=== PATIENT | female | born 1985 | race Two or more races ===

== ENCOUNTER 2019-11-05 05:31 | Emergency (ER) | payer MEDICAID, SELFPAY ==
[~2019-11-05] VITALS: Ht 165.1 cm; Wt 151.5 kg
--- NOTE | 2019-11-05 05:54 | NUR ---
PATIENT REPORTS HER PAIN MOVES FROM HER RLQ TO RUQ, SHE REPORTS RIGHT FLANK PAIN, DENIES ANY DIARRHEA, DENIES ANY TROUBLE OR PAIN URINATING. DENIES ANY BLOOD IN URINE. SHE DENIES ANY N/V. RN GAVE PATIENT A GLASS OF WATER TO ATTEMPT TO OBTAIN A URINE MARIO
[2019-11-05 06:26] LABS: BASOPHILS # (AUTO) 0.01 x10^3/uL (0-0.1); BASOPHILS % (AUTO) 0 % (0-1); EOSINOPHILS # (AUTO) 0.19 x10^3/uL (0-0.4); EOSINOPHILS % (AUTO) 3 % (1-7); LYMPHOCYTES % (AUTO) 17 % (22-44); MD NO; MEAN CORPUSCULAR HEMOGLOBIN 28.1 pg (27.0-34.8); MEAN CORPUSCULAR HGB CONC 32.5 g/dL (32.4-35.8); MEAN CORPUSCULAR VOLUME 86.4 fL (80-100); MEAN PLATELET VOLUME 8.4 fL (7.4-10.4); MONOCYTES # (AUTO) 0.31 x10^3/uL (0.2-0.8); MONOCYTES % (AUTO) 4 % (2-9); NEUTROPHILS # (AUTO) 5.33 x10^3/uL (1.8-6.8); NEUTROPHILS % (AUTO) 76 % (42-75); PLATELET COUNT 202 x10^3/uL (130-400); RED BLOOD COUNT 5.68 x10^6/uL (3.82-5.3); RED CELL DISTRIBUTION WIDTH 15.1 % (9.6-15.2)
[2019-11-05 06:38] LABS: ALANINE AMINOTRANSFERASE 36 U/L (12-78); ALBUMIN 3.1 g/dL (3.4-5.0); ANION GAP 5 mmol/L (5-15); CALCIUM 8.7 mg/dL (8.5-10.1); CHLORIDE 106 mmol/L (98-107)
[2019-11-05 06:41] LABS: ALKALINE PHOSPHATASE 115 U/L (45-117); BILIRUBIN,TOTAL 0.8 mg/dL (0.2-1.0); CREATININE 0.79 mg/dL (0.55-1.02); TOTAL PROTEIN 8.5 g/dL (6.4-8.2)
--- NOTE | 2019-11-05 06:59 | NUR ---
PT TO CT.
[2019-11-05] MEDS ORDERED: OMNIPAQUE 350 MG/ML, 150 ML BOTTLE ONE (07:06)
[2019-11-05 07:25] LABS: MICROSCOPIC INDICATED
--- NOTE | 2019-11-05 07:58 | NUR ---
URINE STILL PENDING. CONTACTED URINE DEPARTMENT, STATED THEY WILL GET TO PT'S SAMPLE NEXT.
[2019-11-05 08:22] VITALS: BP 170/113
== END 2019-11-05 08:25 | disposition home or self-care (01) ==
LOC: ED 06:52
DX: R31.29 Other microscopic hematuria (principal); R10.2 Pelvic and perineal pain; R10.31 Right lower quadrant pain; E66.01 Morbid (severe) obesity due to excess calories; I10 Essential (primary) hypertension; Z90.710 Acquired absence of both cervix and uterus; Z68.43 Body mass index [BMI] 50.0-59.9, adult
CPT/HCPCS: 36415; 74177; 80053; 81001; 83690; 85025; 99285; Q9967

== ENCOUNTER 2019-11-12 10:11 | Emergency (ER) | payer MEDICAID ==
[~2019-11-12] VITALS: Ht 165.1 cm; Wt 152.5 kg
--- NOTE | 2019-11-12 10:48 | NUR ---
OTOLARYNGOLOGY REP: PT TO ROOM FROM TRIAGE
[2019-11-12] MEDS ORDERED: LISI-167 PO (11:07)
--- NOTE | 2019-11-12 11:11 | NUR ---
PT WITH C/O COUGH FOR ABOUT TWO MONTHS, STATES SHE BEGAN TO COUGH UP BLOOD WHILE AT WORK TODAY. STILL HAS DRY COUGH DENIES FURTHER BLOOD. DENIES FEVER, SOB AT THIS TIME.
[2019-11-12 12:54] VITALS: BP 126/76
[2019-11-12 13:02] LABS: BASOPHILS # (AUTO) 0.03 x10^3/uL (0-0.1); BASOPHILS % (AUTO) 0 % (0-1); EOSINOPHILS # (AUTO) 0.19 x10^3/uL (0-0.4); EOSINOPHILS % (AUTO) 2 % (1-7); LYMPHOCYTES # (AUTO) 1.59 x10^3/uL (1-3.4); LYMPHOCYTES % (AUTO) 19 % (22-44); MD NO; MEAN CORPUSCULAR HEMOGLOBIN 27.9 pg (27.0-34.8); MEAN CORPUSCULAR HGB CONC 32.3 g/dL (32.4-35.8); MEAN CORPUSCULAR VOLUME 86.4 fL (80-100); MEAN PLATELET VOLUME 7.9 fL (7.4-10.4); MONOCYTES # (AUTO) 0.43 x10^3/uL (0.2-0.8); MONOCYTES % (AUTO) 5 % (2-9); NEUTROPHILS # (AUTO) 6.33 x10^3/uL (1.8-6.8); NEUTROPHILS % (AUTO) 74 % (42-75); PLATELET COUNT 228 x10^3/uL (130-400); RED BLOOD COUNT 5.75 x10^6/uL (3.82-5.3); RED CELL DISTRIBUTION WIDTH 15.2 % (9.6-15.2)
[2019-11-12 13:10] LABS: ALBUMIN 3.4 g/dL (3.4-5.0); ANION GAP 4 mmol/L (5-15); CALCIUM 8.9 mg/dL (8.5-10.1); CHLORIDE 108 mmol/L (98-107)
[2019-11-12 13:15] LABS: CREATININE 0.84 mg/dL (0.55-1.02)
--- NOTE | 2019-11-12 14:18 | NUR ---
TASK RN: PT MAINTAINING SPO2 >90% ON RA. NO RESPIRATORY DISTRESS NOTED. DC EDUCATION PROVIDED, PT DEMONSTRATES UNDERSTANDING. PT AMBULATED STEADILY TO DC
== END 2019-11-12 14:20 | disposition home or self-care (01) ==
LOC: ED 11:13
DX: J41.1 Mucopurulent chronic bronchitis (principal); Z20.828 Contact with and (suspected) exposure to other viral communicable diseases; R05 Cough; I10 Essential (primary) hypertension
CPT/HCPCS: 36415; 71045; 80048; 82040; 83880; 85025; 85379; 87635; 99284

== ENCOUNTER 2019-12-11 10:03 | Emergency (ER) | payer MEDICAID ==
[~2019-12-11] VITALS: Ht 165.1 cm; Wt 158.0 kg
[~2019-12-11 10:03] MED LIST: LISI-167 PO
--- NOTE | 2019-12-11 10:31 | NUR ---
PT AMBULATED BACK TO ROOM FROM TRIAGE AT THIS TIME.
--- NOTE | 2019-12-11 11:17 | NUR ---
PT AMBULATED TO THE BR W/ A STEADY GAIT. RETURNED TO ROOM, CONNECTED TO MONITORING. URINE COLLECTED AND WALKED TO LAB.
[2019-12-11 11:30] LABS: HCG UR SG 1.017 (1.003-1.030)
[2019-12-11 11:31] LABS: BASOPHILS # (AUTO) 0.03 x10^3/uL (0-0.1); BASOPHILS % (AUTO) 0 % (0-1); EOSINOPHILS % (AUTO) 3 % (1-7); LYMPHOCYTES # (AUTO) 1.38 x10^3/uL (1-3.4); LYMPHOCYTES % (AUTO) 19 % (22-44); MD NO; MEAN CORPUSCULAR HEMOGLOBIN 28.2 pg (27.0-34.8); MEAN CORPUSCULAR HGB CONC 32.3 g/dL (32.4-35.8); MEAN CORPUSCULAR VOLUME 87.3 fL (80-100); MEAN PLATELET VOLUME 8.5 fL (7.4-10.4); MONOCYTES # (AUTO) 0.34 x10^3/uL (0.2-0.8); MONOCYTES % (AUTO) 5 % (2-9); NEUTROPHILS # (AUTO) 5.29 x10^3/uL (1.8-6.8); NEUTROPHILS % (AUTO) 73 % (42-75); PLATELET COUNT 213 x10^3/uL (130-400); RED BLOOD COUNT 5.78 x10^6/uL (3.82-5.3); RED CELL DISTRIBUTION WIDTH 16.1 % (9.6-15.2)
[2019-12-11 11:37] LABS: ANION GAP 3 mmol/L (5-15); CALCIUM 8.3 mg/dL (8.5-10.1); CHLORIDE 106 mmol/L (98-107); CREATININE 0.75 mg/dL (0.55-1.02)
--- NOTE | 2019-12-11 11:47 | NUR ---
ALL TESTS RESULTED. PT IS UP FOR RECHECK AT THIS TIME.
--- NOTE | 2019-12-11 12:10 | NUR ---
PIV STARTED. PT UPDATED ON POC FOR CTA. PT RESTING ON TV TubeXNEY W/ CALL LIGHT IN REACH, SIDE RAILS UPX2. PT HYPERTENSIVE, OTHER VS WDL.
--- NOTE | 2019-12-11 12:24 | NUR ---
PT TO CT.
[2019-12-11] MEDS ORDERED: OMNIPAQUE 350 MG/ML, 75ML BOTTLE ONE (13:15)
--- NOTE | 2019-12-11 13:29 | NUR ---
LUNCH BREAK NOTE: PT DESATED TO 85% WHILE RESTING AND ON 1.5 LITERS OF OXYGEN. P PT AWOKEN AND PLACED ON 3 LITERS THAT BROUGHT HER SAT UP TO 95%. PT TO GET BREATHING TX AND STEROID AND WILL BE REEVALUATED PER DR. MESSINA.
[2019-12-11] MEDS ORDERED: DEXAMETHASONE 4 MG/ML, 1ML PO ONE (13:30)
[2019-12-11] MEDS ORDERED: DEXAMETHASONE 4 MG TABLET PO SCH (13:30)
[2019-12-11] MEDS ORDERED: DEXAMETHASONE 4 MG TABLET ONE ×2 (13:31→14:11)
[2019-12-11] MEDS ORDERED: ALBUTEROL/IPRATROPIUM 2.5MG/0.5MG, 3 ML ONE ×2 (13:47→14:11)
[2019-12-11] MEDS ORDERED: ALBUTEROL/IPRATROPIUM 2.5MG/0.5MG, 3 ML NPPB ONE (14:00)
[2019-12-11] MEDS ORDERED: DEXAMETHASONE 4 MG TABLET PO ONE (14:00)
--- NOTE | 2019-12-11 14:07 | NUR ---
REPORT FROM TARIK GAMBLE. PT CARE RESPONSIBILITIES ASSUMED.
--- NOTE | 2019-12-11 14:16 | NUR ---
PT EDUCATED ON NEBULIZER USE. VERBALIZES UNDERSTANDING. DENIES ANY FURTHER NEEDS OR CONCERNS AT THIS TIME, CALL LIGHT IN REACH.
[2019-12-11 14:29] VITALS: BP 154/103
== END 2019-12-11 14:31 | disposition home or self-care (01) ==
LOC: ED 10:56
DX: T78.40XA Allergy, unspecified, initial encounter (principal); J98.01 Acute bronchospasm; R94.31 Abnormal electrocardiogram [ECG] [EKG]; I10 Essential (primary) hypertension; E66.01 Morbid (severe) obesity due to excess calories; Z90.710 Acquired absence of both cervix and uterus; X58.XXXA Exposure to other specified factors, initial encounter; Y93.89 Activity, other specified; Y92.89 Other specified places as the place of occurrence of the external cause; Y99.8 Other external cause status
CPT/HCPCS: 36415; 71045; 71275; 80048; 81025; 84703; 85025; 93005; 94640; 99285; Q9967

== ENCOUNTER 2021-01-28 23:42 | Emergency (ER) | payer MEDICAID ==
[~2021-01-28] VITALS: Ht 165.1 cm; Wt 180.1 kg
[2021-01-29 00:20] LABS: BASOPHILS % (AUTO) 0 % (0-1); EOSINOPHILS % (AUTO) 3 % (1-7); LYMPHOCYTES % (AUTO) 24 % (22-44); MEAN CORPUSCULAR HEMOGLOBIN 30.2 pg (27.0-34.8); MEAN CORPUSCULAR HGB CONC 33.3 g/dL (32.4-35.8); MEAN PLATELET VOLUME 8.3 fL (7.4-10.4); MONOCYTES % (AUTO) 6 % (2-9); NEUTROPHILS % (AUTO) 66 % (42-75); PLATELET COUNT 171 x10^3/uL (130-400); RED BLOOD COUNT 6.19 x10^6/uL (3.82-5.3); RED CELL DISTRIBUTION WIDTH 15.3 % (9.6-15.2)
--- NOTE | 2021-01-29 00:20 | NUR ---
THIS IS A 35F THAT COMES IN FOR RLQ ABD PAIN X2WKS THAT COMES AND GOES WITH MOVEMENT. HOWEVER PT HAD LOW O2 SAT FOR TRIAGE AND WAS PLACED ON O2, PT STS SHE HAS HAD THIS HAPPEN BEFORE AND HX OF HTN, CHF. SHE IS AWAITING CPAP FOR HOME. PT INTERACTING WITH STAFF/ FAMILY APPROPRIATELY. ERP TO BEDSIDE FOR EVAL AND POC
[2021-01-29 00:23] VITALS: BP 147/120
[2021-01-29] MEDS ORDERED: ALBUTEROL/IPRATROPIUM 2.5MG/0.5MG, 3 ML ONE (00:26)
[2021-01-29] MEDS ORDERED: ALBUTEROL/IPRATROPIUM 2.5MG/0.5MG, 3 ML NPPB ONE (00:30)
--- NOTE | 2021-01-29 00:30 | NUR ---
BREATHING TX STARTED AT THIS TIME PER ERP
[2021-01-29 00:31] LABS: ANION GAP 4 mmol/L (5-15); CALCIUM 8.3 mg/dL (8.5-10.1); CHLORIDE 102 mmol/L (98-107); CREATININE 0.85 mg/dL (0.55-1.02)
[2021-01-29 00:32] LABS: ALANINE AMINOTRANSFERASE 55 U/L (12-78); ALBUMIN 2.5 g/dL (3.4-5.0)
[2021-01-29 00:36] LABS: ALKALINE PHOSPHATASE 124 U/L (45-117); BILIRUBIN,TOTAL 0.5 mg/dL (0.2-1.0); TOTAL PROTEIN 8.2 g/dL (6.4-8.2)
--- NOTE | 2021-01-29 01:21 | NUR ---
PT IN CT AT THIS TIME
--- NOTE | 2021-01-29 03:10 | NUR ---
Patient/Caregiver given discharge instructions and they have confirmed that they understand the instructions. Patient wheeled to dc. NAD, all questions answered appropriately, denies additional needs at this time. No personal belongings left in room after discharge.
== END 2021-01-29 03:11 | disposition home or self-care (01) ==
LOC: ED 23:55
DX: R10.31 Right lower quadrant pain (principal); R06.02 Shortness of breath; R53.1 Weakness; F17.200 Nicotine dependence, unspecified, uncomplicated; Z20.822 Contact with and (suspected) exposure to COVID-19; I11.0 Hypertensive heart disease with heart failure; I50.9 Heart failure, unspecified
CPT/HCPCS: 36415; 71045; 74176; 80053; 83690; 84703; 85025; 87635; 93005; 94640